=== PATIENT | male | born 1970 | race African-American/Black ===

== ENCOUNTER 2024-05-20 21:55 | Emergency (ER) | payer OTHER ==
[~2024-05-20] VITALS: Ht 172.7 cm; Wt 109.0 kg
[2024-05-20 23:01] VITALS: BP 158/89; PULSE 76; RESP 18; TEMP 97.5; O2SAT 100
== END 2024-05-21 04:54 | disposition left against medical advice (07) ==
LOC: ER 21:55
DX: R42 Dizziness and giddiness (principal); Z53.21 Procedure and treatment not carried out due to patient leaving prior to being seen by health care provider

== ENCOUNTER 2025-06-30 21:10 | Emergency (ER) | payer OTHER ==
[~2025-06-30] VITALS: Ht 172.7 cm; Wt 122.0 kg
[2025-06-30 21:12] VITALS: O2SAT 99
[2025-06-30 21:27] VITALS: BP 167/92; PULSE 87; RESP 20; TEMP 37.1; O2SAT 100
[2025-06-30 22:02] LABS: BASOPHILS % 1.0 % (0.0-2.0); EOSINOPHILS % 3.9 % (0.0-5.0); HEMATOCRIT. 44.6 % (42.0-52.0); HEMOGLOBIN. 15.0 g/dL (14.0-18.0); LYMPHOCYTES % 39.4 % (20.0-50.0); MEAN PLATELET VOLUME 9.7 fl (7.4-10.4); MONOCYTES % 8.6 % (2.0-8.0); NEUTROPHILS % 47.1 % (40.0-76.0); PLATELET 193 x1000/uL (130-400); RED BLOOD CELL COUNT 4.81 mill/uL (4.7-6.1); RED CELL DISTRIBUTION WIDTH 13.8 % (11.6-14.6)
[2025-06-30 22:15] LABS: CREATININE 1.4 mg/dL (0.6-1.3)
[2025-06-30 22:16] LABS: UREA NITROGEN BLOOD 19 mg/dL (9-23)
[2025-06-30 22:17] LABS: ASPARTATE AMINOTRANSFERASE 16 IU/L (<34)
[2025-06-30 22:18] LABS: BILIRUBIN DIRECT 0.1 mg/dL (<=3.0); BILIRUBIN TOTAL 0.4 mg/dL (0.1-1.0); PROTEIN TOTAL 6.8 g/dL (6.0-8.3)
[2025-06-30 23:14] LABS: TROPONIN I HIGH SENSITIVITY 12 ng/L (3.0-53)
[2025-07-01] MEDS ORDERED: KETOROLAC 15MG/ML VIAL IM ONE (00:30)
[2025-07-01] MEDS ORDERED: NAPR-1176 MT (00:41)
== END 2025-07-01 00:40 | disposition left against medical advice (07) ==
LOC: ER 21:10
DX: R10.11 Right upper quadrant pain (principal); E11.9 Type 2 diabetes mellitus without complications; I10 Essential (primary) hypertension
CPT/HCPCS: 36415; 71045; 74176; 80048; 80076; 84484; 85025; 93005; 99285; J1885